=== PATIENT | male | born 1980 | race Caucasian/White ===

== ENCOUNTER 2022-04-01 19:13 | Inpatient (IN) | payer OTHER ==
[~2022-04-01] VITALS: Ht 175.3 cm; Wt 67.7 kg
[2022-04-01 19:51] LABS: COLLECTION METHOD CLEAN CATCH
[2022-04-01 19:54] LABS: BASO # 0.1 K/mm3 (0.0-0.2); BASO % 0.9 % (0.0-2.0); EOS % 0.2 % (0.0-4.0); GRAN # 2.1 K/mm3 (1.4-6.5); GRAN % 38.2 % (42.2-75.2); HEMATOCRIT 47.6 % (42.0-52.0); HEMOGLOBIN 17.5 g/dl (13.5-18.0); LYMPH # 2.7 K/mm3 (1.2-3.4); LYMPH % 49.1 % (20.0-51.0); MEAN CELL VOLUME 90 fl (80.0-100.0); MEAN CORPUSCULAR HEMOGLOBIN 33 pg (27-31); MEAN CORPUSCULAR HGB CONC 37 g/dl (33.0-37.0); MEAN PLATELET VOLUME 9.7 fl (7.4-10.4); MONO # 0.6 K/mm3 (0.1-0.6); MONO % 11.4 % (1.7-9.3); PLATELET COUNT 206 K/mm3 (130-400); RED BLOOD COUNT 5.27 M/mm3 (4.20-5.60); REDCELL DISTRIBUTION WIDTH-CV 13.8 % (11.5-14.5)
[2022-04-01 20:01] LABS: PH 8 (5-8); SQUAMOUS EPITHELIAL None Seen /hpf (0-10); URINE APPEARANCE Clear (CLEAR/HAZY); URINE BACTERIA None Seen /hpf (NONE SEEN); URINE BILIRUBIN Negative (NEGATIVE); URINE BLOOD Negative (NEGATIVE); URINE COLOR Yellow (YELLOW); URINE GLUCOSE Negative (NEGATIVE); URINE KETONE 1+ (NEGATIVE); URINE LEUKOCYTE ESTERASE Negative (NEGATIVE); URINE NITRATE Negative (NEGATIVE); URINE PROTEIN(semi-quant) Negative (NEGATIVE); URINE RBC None Seen /hpf (0-2); URINE UROBILINOGEN Negative (NEGATIVE)
[2022-04-01 20:12] LABS: ALBUMIN 4.6 gm/dL (3.5-5.0); BILIRUBIN,TOTAL 3.5 mg/dL (0.2-1.2); CALCIUM 9.1 mg/dL (8.4-10.2); CREATININE, serum 0.83 mg/dL (0.72-1.25); TOTAL PROTEIN 7.3 gm/dL (6.2-8.1)
[2022-04-01 20:15] LABS: POTASSIUM 2.8 mmol/L (3.5-4.5)
[2022-04-01 20:18] LABS: TRICYCLIC ANTIDEPRESS URINE NEGATIVE
[2022-04-02] VITALS (9 sets, daily range): BP systolic 127–146; BP diastolic 84–103; PULSE 93–112; TEMP 98.1–99.3
[2022-04-02 01:09] LABS: POTASSIUM 3.4 mmol/L (3.5-4.5)
--- NOTE | 2022-04-02 06:09 | NUR ---
PATIENT LIVES AT HOME ALONE DOESN'T HAVE MUCH OF A SUPPORT SYSTEM WHEN ASKED. VERY DROWSY BUT COOPERATIVE, NO SUICIDAL INDICATION NOTED. PATIENT DID STATE THAT HE DRINKS WHISKEY DAILY ABOUT HALF TO A GALLON DAILY. HISTORY NOTED HE HAS DETOXED IN THE PAST WITH SEIZURE AND HALLUCINATION FROM WITHDRAWL. PATIENT IS WANTING TO GET SOBER. NO PAIN NOTED AT THIS TIME CONTINUES ON CWAW SCORE OF 3 AT THIS TIME. PADDED BED FOR SEIZURE PRECAUTIONS. ALSO INFORMED CHARGE OF POSSIBLY MOVING PATIENT CLOSER TO NURSING STATION. PATIENT SLEEPING AT THIS TIME CALL LIGHT WITHIN REACH. ORIENTATED TO ROOM AND CALL LIGHT SYSTEM SKIN INTACT WILL COTNINUE TO MONITOR.
[2022-04-02 06:19] LABS: BASO % 0.9 % (0.0-2.0); EOS % 0.3 % (0.0-4.0); GRAN # 1.2 K/mm3 (1.4-6.5); GRAN % 36.6 % (42.2-75.2); HEMATOCRIT 38.8 % (42.0-52.0); HEMOGLOBIN 13.4 g/dl (13.5-18.0); LYMPH # 1.6 K/mm3 (1.2-3.4); LYMPH % 48.2 % (20.0-51.0); MEAN CELL VOLUME 94 fl (80.0-100.0); MEAN CORPUSCULAR HEMOGLOBIN 33 pg (27-31); MEAN CORPUSCULAR HGB CONC 35 g/dl (33.0-37.0); MEAN PLATELET VOLUME 9.8 fl (7.4-10.4); MONO # 0.5 K/mm3 (0.1-0.6); MONO % 13.7 % (1.7-9.3); PLATELET COUNT 130 K/mm3 (130-400); RED BLOOD COUNT 4.06 M/mm3 (4.20-5.60); REDCELL DISTRIBUTION WIDTH-CV 14.1 % (11.5-14.5)
[2022-04-02 06:38] LABS: CALCIUM 7.6 mg/dL (8.4-10.2); CREATININE, serum 0.66 mg/dL (0.72-1.25); POTASSIUM 3.5 mmol/L (3.5-4.5)
--- NOTE | 2022-04-02 08:00 | NUR ---
Assessment completed, alert/oriented, vital signs stable/ a little tachycardic, he denies pain or discomfort, he reports he is feeling anxious and has some mild tremors, reports decreased appetite but denies Nausea, CIWA score of 6 this morning and treating with Ativan per protocol, patient reports history of severe detox/ withrawl symptoms, he denies needs at this time, will continue to monitor closely
--- NOTE | 2022-04-02 13:56 | NUR ---
THEODORE met with the patient to discuss discharge plan. The patient lives alone in [place]. He reports independence with ADLs and does not have any DME. The patient states that he receives primary care and his medications from the [facility]. He is unsure what team he is on and states that he has not followed up with them in a few months. The patient does not have a DPOA-HC, but he was interested in completing a form while here. THEODORE provided. The patient designated his sister, Kaern Francisco (ph#[phone]). Karen lives in [place]. THEODORE and the patient's RN, Julio, witnessed the patient's signature. THEODORE provided the patient with the original and some copies. SW placed a copy in the patient's chart. The patient was admitted for alcohol abuse and detox. SW discussed inpatient/outpatient treatment. The patient states that he plans on returning home upon discharge, because he needs to do some things. He states that he would like to go to an inpatient alcohol facility, if the [place] pays for it. THEODORE contacted Kimberly, [place] social media editor, to inquire about whether the [place] pays for the inpatient alcohol treatment. Kimberly informed THEODORE that the patient is apart of the Blue Team and that his provider is Chacho Crowell. She states that SW will need to get in contact with their occupational therapy assistant, Vaishali Valerio (ph#[phone], ext. [phone]). Vaishali will be able to determine if the patient would qualify for inpatient alcohol treatment being covered and resources available. THEODORE attempted to contact Vaishali. THEODORE left her a voicemail. THEODORE provided the patient with a local alcohol resource list. *Discharge plan: home*
--- NOTE | 2022-04-02 23:32 | NUR ---
AAOX4 PATIENT CONITNUES ON CIWA PRECAUTIONS.PATIENT DOES HAVE INTERMITTEN TREMORS, DIAPHORESIS, AND HEADACHES. PATIENT THIS EVENING AROUND 1100 STATED THAT HE IS HALLUCINATING, HE STATED THAT HE IS SEEING PEOPLE IN HIS ROOM AND THERE JUST TALKING ALOT AND IT'S AGGREVATING PROVIDED PRN ATIVAN ORDERED. PATIENT DOES FEEL LIKE HE IS IN A SAFE ENVIRONMENT. WILL CONTINUE TO MONITOR NUTRITION ADEQUATE CALL LIGHT WITHIN REACH WILL COTINUE TO MONITOR FOR ANY CHAGNES.
[2022-04-03] VITALS (12 sets, daily range): BP systolic 126–148; BP diastolic 83–99; PULSE 82–114; TEMP 97.7–98.7
--- NOTE | 2022-04-03 05:07 | NUR ---
AROUND 0245 PATIENT INFORMED THIS NURSE THAT HE WAS HALLUCINATING. HE FELT HIS SYMTPOMS WHERE PROGRESSING. HE FELT A BURING SENSATION ALL OVER HIS BODY WITH BACK PAIN THAT FELT LIKE SOMETHING WAS GOING INTO HIS SKIN THEN CRAWLING AROUND. PATIENT HAS HAD INSOMNIA THROUGHOUT SHIFT AND UNABLE TO SLEEP. I COULD VISUALLY SEE HIS TREMORS IN ALL EXTREMITIES PATIET FELT HE WASN'T ABLET O SETTLE DOWN AT ALL. PATIENT ALSO WAS STATING THAT HIS BED HAD AN ODOR AND WANTED HIS MATTRESSED FLIPPED. NURSE AND ELECTROENCEPHALOGRAPHIC TECHNOLOGIST ASSIST PATIENT CLEANED DOWN BED AND ALSO FLIPPED MATTRESS ON BACK SIDE. PATIENT SEEM TO CALM DOWN AND STOPPED PACING IN ROOM PROVIDED PRN ATIVAN. SOMEWHATE EFFECITVE PROVIDED ANOTHER DOSE AROUND 0400 DUE TO PATIENT STATING THAT HE CONTINUED TO HAVE HALLUCINATION, PAIN, HEADACHE, SLIGHTLY DIAPHORECTIC, AND FELT HIS SKIN WAS STILL ON FIRE. AT THIS TIME 0512 PATIENT IS LYING IN BED AWAKE WILL CONTINUE TO MONITOR.
[2022-04-03 06:07] LABS: BASO % 0.9 % (0.0-2.0); EOS % 0.9 % (0.0-4.0); GRAN # 1.8 K/mm3 (1.4-6.5); GRAN % 56.7 % (42.2-75.2); HEMATOCRIT 39.6 % (42.0-52.0); HEMOGLOBIN 13.9 g/dl (13.5-18.0); LYMPH # 0.9 K/mm3 (1.2-3.4); LYMPH % 29.6 % (20.0-51.0); MEAN CELL VOLUME 92 fl (80.0-100.0); MEAN CORPUSCULAR HEMOGLOBIN 32 pg (27-31); MEAN CORPUSCULAR HGB CONC 35 g/dl (33.0-37.0); MEAN PLATELET VOLUME 10.1 fl (7.4-10.4); MONO # 0.4 K/mm3 (0.1-0.6); MONO % 11.9 % (1.7-9.3); PLATELET COUNT 132 K/mm3 (130-400); RED BLOOD COUNT 4.29 M/mm3 (4.20-5.60); REDCELL DISTRIBUTION WIDTH-CV 13.8 % (11.5-14.5)
[2022-04-03 06:13] LABS: ALBUMIN 3.9 gm/dL (3.5-5.0); BILIRUBIN,TOTAL 4.1 mg/dL (0.2-1.2); CREATININE, serum 0.64 mg/dL (0.72-1.25); MAGNESIUM 1.6 mg/dL (1.6-2.6); POTASSIUM 3.3 mmol/L (3.5-4.5); TOTAL PROTEIN 6.1 gm/dL (6.2-8.1)
--- NOTE | 2022-04-03 10:34 | NUR ---
Assessment completed, alert/oriented, vital signs stable, CIWA scores are fluctuating, we are starting on Valium taper and using Ativan PRN per protocol, he is tolerating PO intake without N/V, appetite less than heart RRR/ tachy at times, lungs CTA/ no resp.difficulty noted, yesterday denies pain or discomfort, no seizure activity, discussed plan of care with hospitalist team and patient, will continu to monitor
--- NOTE | 2022-04-03 16:18 | NUR ---
Chayo, from [facility], contacted THEODORE. She states that the patient has two options if he is looking at inpatient alcohol treatment. He can either go through [facility], which is care outside of the [facility]. He would have to complete a Request For Service Form, which would also need to be filled out by the hospitalist. The completed form would need to be faxed to either [phone]. If the patient is wanting to stay and look at treatment within the [facility], documentation would need to be faxed to the VA. The VA and their mental health team can assist with finding a program or treatment for the patient. . If we have any questions, we can contact the Blue Team 6 RN at [phone]. The fax number for the pharmacy, if the patient will be prescribed any new meds is [phone]. The patient is actively detoxing today and was moved to room 355. THEODORE to follow up with the patient about the treatment options.
--- NOTE | 2022-04-03 20:00 | NUR ---
Pt. sitting up in bed. Pt. is A&OX3, assessment complete. INT to lt. ac patent. Pt. scoring 9's on detox scale. Giving 2 mg of ativan. Pt. seems very paranoid and anxious at this time. Pt. frequently asks for more ativan. Will continue to monitor detox scores. Pt. denies further needs, call light within reach. Bed alarm on.
[2022-04-04] VITALS (12 sets, daily range): BP systolic 115–151; BP diastolic 74–95; PULSE 70–109; TEMP 97.6–98.9
[2022-04-04 06:48] LABS: BASO % 1.4 % (0.0-2.0); EOS # 0.1 K/mm3 (0.0-0.7); EOS % 1.8 % (0.0-4.0); GRAN # 1.8 K/mm3 (1.4-6.5); GRAN % 65.2 % (42.2-75.2); HEMATOCRIT 39.2 % (42.0-52.0); LYMPH # 0.6 K/mm3 (1.2-3.4); LYMPH % 22.7 % (20.0-51.0); MEAN CELL VOLUME 93 fl (80.0-100.0); MEAN CORPUSCULAR HEMOGLOBIN 33 pg (27-31); MEAN CORPUSCULAR HGB CONC 36 g/dl (33.0-37.0); MEAN PLATELET VOLUME 10.9 fl (7.4-10.4); MONO # 0.2 K/mm3 (0.1-0.6); MONO % 8.5 % (1.7-9.3); PLATELET COUNT 118 K/mm3 (130-400); RED BLOOD COUNT 4.23 M/mm3 (4.20-5.60); REDCELL DISTRIBUTION WIDTH-CV 13.6 % (11.5-14.5)
[2022-04-04 07:08] LABS: ALBUMIN 3.7 gm/dL (3.5-5.0); BILIRUBIN,TOTAL 2.3 mg/dL (0.2-1.2); CALCIUM 8.9 mg/dL (8.4-10.2); CREATININE, serum 0.62 mg/dL (0.72-1.25); POTASSIUM 3.1 mmol/L (3.5-4.5); TOTAL PROTEIN 5.9 gm/dL (6.2-8.1)
--- NOTE | 2022-04-04 09:36 | NUR ---
THEODORE met with the patient to update about the 2 options for inpatient alcohol treatment from the [facility]. The patient states that he really is not sure and to do whatever that be expedited quickly. THEODORE informed him that SW could send the patient's records to the VA, for them to help find inpatient treatment that is contracted with the VA. THEODORE informed him that the VA may not have placement by the time he discharges. The patient verbalized understanding. THEODORE faxed the patient's records to the [facility] Blue Team 6.
--- NOTE | 2022-04-04 10:17 | NUR ---
PATIENT ALERT AND ORIENTED THIS MORNING, CIWA SCORE 2, COMPLAINTS OF HEADACHE, AND CHRONIC BACK PAIN. RESTING INTERMITTENTLY IN BED. SOME PACING IN HALLWAY AND IN ROOM BEFORE MORNING MEDS. REPLACEMENT POTASSIUM AND MAG THIS MORNING. CLOSE MONITORING OF VITALS AND CIWA PROTOCOLS. PATIENT WITH FLAT AFFECT, WITH DRAWN, AND DISTANT. WILL CONTINUE TO MONITOR CLOSELY.
--- NOTE | 2022-04-04 15:18 | NUR ---
PATIENT "ROLLED OUT OF BED' CAUSING IV TO FALL OUT. NEW IV 20G TO RIGHT UPPER ARM PLACED. PATIENT SHOWERED INDEPENDENTLY.
--- NOTE | 2022-04-04 17:12 | NUR ---
PATIENT ATTITUDE WAXES AND WANES. CIWA SCORES UP AND DOWN FROM 2 TO 6 OVER THE DAY. 2 DOSES OF ATIVAN GIVEN PER SCORING CRITERIA. PATIENT IV REMOVED BY 'PATIENT ROLLING OUT OF BED', REPLACED IN ONEIL. ONE DOSE OF IV MAG GIVEN, AGREEABLE TO IV FLUIDS, AND ALL ORAL MEDICATIONS. AT ONE POINT TECH REPORTED ELEVATION IN BLOOD PRESSURE, PATIENT AGITATED AND WANTED "1HR OF PRIVACY", AND WAS CURSING AT STAFF. AUTHOR WALKED IN TO GIVEN PATIENT 0.5MG OF PRESCRIBED CIWA ATIVAN TO FIND PATIENT WITH PANTS PULLED DOWN, LOTION ON BEDSIDE TABLE, AND PATIENT ATTEMPTING TO COVER HIMSELF WITH BLANKET WHEN WALKED IN ON. RECOMMEND TWO STAFF AT BEDSIDE FOR CARE OR DOOR OPEN WHEN STAFF BEDSIDE. NO OTHER SIGNIFICANT EVENTS THIS SHIFT.
[2022-04-05] VITALS (12 sets, daily range): BP systolic 112–143; BP diastolic 76–98; PULSE 71–101; TEMP 97–98.5
[2022-04-05 06:16] LABS: BASO % 1.1 % (0.0-2.0); EOS # 0.1 K/mm3 (0.0-0.7); EOS % 2.6 % (0.0-4.0); GRAN # 1.6 K/mm3 (1.4-6.5); GRAN % 56.9 % (42.2-75.2); HEMATOCRIT 37.8 % (42.0-52.0); LYMPH # 0.9 K/mm3 (1.2-3.4); MEAN CELL VOLUME 95 fl (80.0-100.0); MEAN CORPUSCULAR HEMOGLOBIN 33 pg (27-31); MEAN CORPUSCULAR HGB CONC 34 g/dl (33.0-37.0); MEAN PLATELET VOLUME 10.9 fl (7.4-10.4); MONO # 0.2 K/mm3 (0.1-0.6); PLATELET COUNT 124 K/mm3 (130-400); RED BLOOD COUNT 3.97 M/mm3 (4.20-5.60)
[2022-04-05 06:20] LABS: PROTHROMBIN TIME 11.6 SECONDS (9.7-12.8)
--- NOTE | 2022-04-05 06:23 | NUR ---
ASSESSMENT COMPLETE FOR THIS SHIFT. PT RESTING IN BED NAPPING. PT DENIED PAIN, PALPITATIONS, SOB, N,V,D OR DIZZINESS. PT DID COMPLAIN OF FEELING LIKE HIS SKIN, FACE AND INTERNAL BODY WAS ON FIRE. PT ALSO MADE WEIRD COMMENTS, FOR EXAMPLE,"IS THIS THE BASEMENT OF THE HOSPITAL?" PT HAD ONE EPISODE OF INAPPROPRIATE TOUCH. PT STARTED RUBBING ON MY THIGH AND ASKING ME TO COME CLOSER. HOWEVER, WHEN I TOLD HIM THAT WAS INAPPROPRIATE BEHAVIOR, PT QUICKLY STOPPED. PT SCORED A COUPLE OF 6'S AND A 7 ON CIWA TONIGHT. PT GIVEN ATIVAN PER CIWA SCALE. PT EXPRESSED NO OTHER NEEDS AT THIS TIME. CALL LIGHT WITHIN REACH.
[2022-04-05 06:25] LABS: ALBUMIN 3.3 gm/dL (3.5-5.0); BILIRUBIN,TOTAL 1.9 mg/dL (0.2-1.2); CALCIUM 8.4 mg/dL (8.4-10.2); CREATININE, serum 0.72 mg/dL (0.72-1.25); MAGNESIUM 1.9 mg/dL (1.6-2.6); POTASSIUM 3.5 mmol/L (3.5-4.5); TOTAL PROTEIN 5.5 gm/dL (6.2-8.1)
--- NOTE | 2022-04-05 06:45 | NUR ---
Bedside report received, assumed care for dayshift.
--- NOTE | 2022-04-05 08:00 | NUR ---
Assessment complete. A&Ox3. Denies pain/nausea/shortness of breath. VS stable. Noted to have an intermittent tremor. Remains calm at this time. Plan of care discussed for this shift to include meds/vitals/calling for questions/concerns. Verbalizes understanding. Call light in reach. Will monitor.
--- NOTE | 2022-04-05 12:30 | NUR ---
Called to desk with c/o chest pain. States it started in his left side and radiated up to chest and then to back. Vitals stable. Dr Chaudhry notified and new orders received and initiated. EKG complete. Ativan 1mg given IV push per order. Currently resting eyes closed.
--- NOTE | 2022-04-05 14:00 | NUR ---
Dr Houston at bedside.
--- NOTE | 2022-04-05 18:28 | NUR ---
Resting in bed eating dinner. Denies pain/nausea/shortness of breath. VS remain stable. Did receive ativan x2 for detox protocol. Fluids continue to infuse to right upper arm IV. Denies current needs. Call light in reach. Will monitor.
[2022-04-06] VITALS (12 sets, daily range): BP systolic 117–151; BP diastolic 71–95; PULSE 69–91; TEMP 97.7–98.7
--- NOTE | 2022-04-06 06:25 | NUR ---
ASSESSMENT COMPLETE FOR THIS SHIFT. PT RESTING IN BED WITH THE COVERS OVER HIS HEAD. PT DENIED PAIN, PALPITATIONS, N,V,D, SOB OR DIZZINESS. PT SCORED 2'S AND 3' ON CIWA MOST OF THE NIGHT, THEN SCORED A COUPLE OF 6'S A COUPLE OF HOURS BEFORE SHIFT CHANGE. PT GIVEN 1mg OF ATIVAN FOR EACH 6 SCORE. PT STATED THE ATIVAN ONLY HELPS FOR A LITTLE WHILE. PT EXPRESSED NO OTHER NEEDS AT THIS TIME. CALL LIGHT WITHIN REACH.
--- NOTE | 2022-04-06 06:45 | NUR ---
Report received, assumed care for day shift.
--- NOTE | 2022-04-06 08:20 | NUR ---
Assessment complete. A&Ox3. Denies pain/nausea/shortness of breath. VS stable.
[2022-04-06 08:49] LABS: ALBUMIN 3.3 gm/dL (3.5-5.0); BILIRUBIN,TOTAL 1.3 mg/dL (0.2-1.2); CALCIUM 8.4 mg/dL (8.4-10.2); CREATININE, serum 0.71 mg/dL (0.72-1.25); POTASSIUM 4.1 mmol/L (3.5-4.5); TOTAL PROTEIN 5.5 gm/dL (6.2-8.1)
--- NOTE | 2022-04-06 17:13 | NUR ---
Patient had an uneventful day. Did receive ativan x2 for scoring 5-7 on protocol. INTd today. Voiding well/tolerating diet. VS stable. Denies current needs. Call light in reach. Will monitor.
[2022-04-07] VITALS (8 sets, daily range): BP systolic 116–144; BP diastolic 67–95; PULSE 63–97; TEMP 98.1–99.2
[2022-04-07 08:30] LABS: BASO % 0.6 % (0.0-2.0); EOS # 0.1 K/mm3 (0.0-0.7); EOS % 1.7 % (0.0-4.0); GRAN # 2.7 K/mm3 (1.4-6.5); HEMATOCRIT 42.8 % (42.0-52.0); HEMOGLOBIN 14.7 g/dl (13.5-18.0); LYMPH # 1.3 K/mm3 (1.2-3.4); LYMPH % 27.9 % (20.0-51.0); MEAN CELL VOLUME 98 fl (80.0-100.0); MEAN CORPUSCULAR HEMOGLOBIN 34 pg (27-31); MEAN CORPUSCULAR HGB CONC 34 g/dl (33.0-37.0); MEAN PLATELET VOLUME 10.5 fl (7.4-10.4); MONO # 0.6 K/mm3 (0.1-0.6); MONO % 11.6 % (1.7-9.3); PLATELET COUNT 182 K/mm3 (130-400); RED BLOOD COUNT 4.35 M/mm3 (4.20-5.60); REDCELL DISTRIBUTION WIDTH-CV 14.8 % (11.5-14.5)
--- NOTE | 2022-04-07 08:30 | NUR ---
PT LAYING SUPINE IN BED ON ROOM AIR PLAYING ON PHONE. PT STATES HE IS "FEELING GOOD." NO TREMORS ARE NOTED AND PT DENIES ANY HALLUCATIONS. THERAPY IS AT BEDSIDE TO WORK WITH PT. PT AND THERAPY UP TO WALK IN HALLWAY. PT STATES NO NEEDS AT THIS TIME.
[2022-04-07 08:48] LABS: ALBUMIN 3.7 gm/dL (3.5-5.0); BILIRUBIN,TOTAL 1.2 mg/dL (0.2-1.2); CALCIUM 9.2 mg/dL (8.4-10.2); CREATININE, serum 0.82 mg/dL (0.72-1.25); POTASSIUM 3.9 mmol/L (3.5-4.5); TOTAL PROTEIN 6.2 gm/dL (6.2-8.1)
--- NOTE | 2022-04-07 14:13 | NUR ---
A psych consult was ordered and the psychiatrist met with the patient this weekend. The patient is now declining alcohol treatment. The clinical team is thinking possible discharge tomorrow. THEODORE met with the patient to follow up an review discharge plan. The patient states that he would still be interested in inpatient treatment through the [place]. THEODORE informed him that this SW has notified and faxed his information to his team at the [place]. We have not heard anything back yet and that he will continue to have to stay in touch with them about treatment options. The patient verbalized understanding. The patient then inquired about homeless shelters. The patient states that he may have lost his apartment, but is not sure. He states he is unsure if he paid his rent. THEODORE encouraged the patient to contact his landlord today to find out disposition and to inform the landlord of his hospitalization. The patient verbalized understanding. THEODORE provided the patient with [facility]'s Resource Guide, a list of homeless shelters with their contact information, and the [facility] Team 6 phone number. THEODORE attempted to contact the [facility] Team 6 janitor cleaner, Juan, to notify of possible discharge tomorrow. THEODORE left her a voicemail.
--- NOTE | 2022-04-07 16:36 | NUR ---
PT STATES THAT HE DOES NOT WANT HEART TELE ON ANYMORE. CALLED RIGOBERTO ANNA AND INFORMED HER PT WAS REFUSING. RIGOBERTO STATES THAT SHE WILL DC IT.
--- NOTE | 2022-04-07 18:24 | NUR ---
PT LAYING SUPINE IN BED ON ROOM AIR PLAYING ON PHONE. PT STATES NO PAIN OR NEEDS AT THIS TIME. PT REQUEST DINNER TRAY TO BE LEFT IN ROOM. NO TREMORS ARE NOTED. CALL LIGHT IS WITHIN REACH.
[2022-04-08 00:29] VITALS: BP 127/85; PULSE 77; TEMP 98.7
[2022-04-08 04:31] VITALS: BP 146/77; PULSE 79; TEMP 98.6
--- NOTE | 2022-04-08 06:30 | NUR ---
PT IS AWAKE AND ACTIVE IN THE ROOM. DENIES ANY PAIN. CIWA SCORE IS ZERO AT THIS TIME.
[2022-04-08 08:07] VITALS: BP 144/87; PULSE 97; TEMP 98.3
[2022-04-08 08:37] LABS: BASO # 0.1 K/mm3 (0.0-0.2); BASO % 0.8 % (0.0-2.0); EOS # 0.1 K/mm3 (0.0-0.7); EOS % 1.4 % (0.0-4.0); GRAN # 3.7 K/mm3 (1.4-6.5); GRAN % 57.7 % (42.2-75.2); HEMATOCRIT 45.8 % (42.0-52.0); HEMOGLOBIN 15.8 g/dl (13.5-18.0); LYMPH # 1.7 K/mm3 (1.2-3.4); LYMPH % 27.2 % (20.0-51.0); MEAN CELL VOLUME 96 fl (80.0-100.0); MEAN CORPUSCULAR HEMOGLOBIN 33 pg (27-31); MEAN CORPUSCULAR HGB CONC 35 g/dl (33.0-37.0); MEAN PLATELET VOLUME 10.5 fl (7.4-10.4); MONO # 0.8 K/mm3 (0.1-0.6); MONO % 11.8 % (1.7-9.3); PLATELET COUNT 227 K/mm3 (130-400); RED BLOOD COUNT 4.76 M/mm3 (4.20-5.60); REDCELL DISTRIBUTION WIDTH-CV 15.1 % (11.5-14.5)
[2022-04-08 08:56] LABS: BILIRUBIN,TOTAL 1.1 mg/dL (0.2-1.2); CALCIUM 9.5 mg/dL (8.4-10.2); CREATININE, serum 0.83 mg/dL (0.72-1.25); POTASSIUM 3.9 mmol/L (3.5-4.5); TOTAL PROTEIN 6.8 gm/dL (6.2-8.1)
[2022-04-08] MEDS ORDERED: THIAMINE 1100 MG/TAB PO (11:11)
[2022-04-08] MEDS ORDERED: FOLIC ACID 11 MG/TA1 PO (11:11)
[2022-04-08] MEDS ORDERED: DUO-KAPS1 CAP PO (11:11)
--- NOTE | 2022-04-08 13:28 | NUR ---
THEODORE received a voicemail from Chayo, district manager primary care sales, with the [facility] Blue Team. Chayo reports that they reached out to the patient about inpatient alcohol treatment, but the patient is stating that his priority right now is focusing on bills and he wants to hold off on inpatient treatment at this time. Chayo states that they provided the patient with the contact information to their mental health team. THEODORE then received a phone call from Kristina Church, the patient's case sealer, through the patient's community based care through the [place]. Kristina states that she checks in on the patient monthly and just talked to him. She states that the patient is homeless, but has a special voucher that has him housed in [address]. She states that she checked with patient's housing and the patient is able to return back to his apartment and the property is willing to work with the patient. Kristina plans to keep on working with the patient on placement. She states that he goes back and fourth about wanting inpatient alcohol treatment. The patient is to discharge back home today, 04/08. THEODORE provided the patient's RN with a taxi voucher. No additional needs at this time.
--- NOTE | 2022-04-08 14:15 | NUR ---
DURING DISCHARGE EDUCATION, THE PATIENT MADE A STATEMENT "I JUST WANT TO GO HOME AND KILL MYSELF." WHEN ASKED IF HE HAD A PLAN, HE STATES "I'M MESSED UP IN THE HEAD, I'M ALWAYS SUICIDAL." THIS RN NOTIFIED SHOSHANA FRANKLIN WHO PLACED THE PATIENT UNDER A LEVEL I, SUICIDE WATCH.
--- NOTE | 2022-04-08 15:22 | NUR ---
Kristina, the patient's landcare officer, contacted this SW back. She states that she feels like the patient would benefit from transferring to the [facility] to be screened by their Mental Health team for acute psych to help get him back on his psych medications. Kristina states that this is up to the patient, but that we could get this coordinated and transportation set up through the [place]. THEODORE would just need to contact Mass[employer] at [phone], ext. [phone] and information faxed to them. THEODORE met with the patient to discuss this option and how it would help him. The patient's RN was present. The patient states that this will not work for him right now and he would want to reschedule this. He states that he just wants to get home and take care of some things. The patient then went on to say that inpatient psych/alcohol treatment will not help him and that he just needs some good meds so that he can sleep for a week. The patient states that he just wants to kill himself. THEODORE asked if the patient is having thoughts of suicide or harming himself. The patient states that he is just done. THEODORE notified the PA. Discharge today has been canceled. The clinical team would like for [facility] to screen the patient. THEODORE contacted and faxed the patient's records to [facility]. Awaiting information from [facility] for the Zoom meeting to screen the patient. THEODORE updated the patient's RN.
[2022-04-08 16:07] VITALS: BP 136/96; PULSE 79; TEMP 98
--- NOTE | 2022-04-08 18:00 | NUR ---
[facility] SCREENING DONE, STATES THAT THE PATIENT IS UNCLEAR IN HIS STATEMENTS AND DOES NOT FEEL THAT THE PATIENT IS SAFE TO GO HOME THEREFORE NEEDS TO BE HELD INVOLUNTARY. THIS RN ASKED FOR THE PAPERWORK FROM [facility] TO BE FAXED.
--- NOTE | 2022-04-08 19:21 | NUR ---
PT HAD EVENTFUL DAY. DURING DISCHARGE EDUCATION THE PATIENT EXPRESSED SUICIDAL IDEATION. WAS CONTACTED. THE PROVIDER PUT IN AN ORDER FOR PAWNEE SCREEN. THE PATIENT WAS THEN PLACED ON AN INVOLUNTARY HOLD PENDING INVOLUNTARY INPATIENT PLACEMENT. THE PATIENT WAS VERY CALM. ATIVAN AND HALDOL WERE GIVEN. THE PATIENT HAS BEEN LAYING IN BED, DENIES ANY NEEDS. REPORT WAS GIVEN TO ADRI MENDOZA.
[2022-04-08 20:49] VITALS: BP 136/91; PULSE 117; TEMP 98.6
[2022-04-08 22:23] VITALS: BP 109/75; PULSE 104; TEMP 98.6
[2022-04-09] VITALS (34 sets, daily range): BP systolic 98–154; BP diastolic 63–99; PULSE 70–118; TEMP 97.6–98.7
--- NOTE | 2022-04-09 06:30 | NUR ---
PT IS SLEEPING AT THIS TIME.
--- NOTE | 2022-04-09 07:30 | NUR ---
OPENED PATIENT DOOR, PATIENT IS LAYING IN BED.
--- NOTE | 2022-04-09 08:20 | NUR ---
PT IS AWAKE AND SITTING UP EATING BREAKFAST. NO OTHER CONCERNS. PATIENT IS IN A STABLE MOOD THIS MORNING. DENIES ANY PAIN OR DISCOMFORT. THE PATIENT REMAINS UNDER SPECIAL SUPERVISION FOR INVOLUNTARY PSYCH HOLD DUE TO THREAT TO HARM HIMSELF.
[2022-04-09 08:21] LABS: BASO % 0.9 % (0.0-2.0); EOS # 0.1 K/mm3 (0.0-0.7); EOS % 2.1 % (0.0-4.0); GRAN # 2.2 K/mm3 (1.4-6.5); GRAN % 51.5 % (42.2-75.2); HEMATOCRIT 40.9 % (42.0-52.0); LYMPH # 1.2 K/mm3 (1.2-3.4); LYMPH % 27.7 % (20.0-51.0); MEAN CELL VOLUME 100 fl (80.0-100.0); MEAN CORPUSCULAR HGB CONC 34 g/dl (33.0-37.0); MEAN PLATELET VOLUME 10.5 fl (7.4-10.4); MONO # 0.7 K/mm3 (0.1-0.6); MONO % 16.4 % (1.7-9.3); PLATELET COUNT 235 K/mm3 (130-400); RED BLOOD COUNT 4.09 M/mm3 (4.20-5.60); REDCELL DISTRIBUTION WIDTH-CV 15.6 % (11.5-14.5)
[2022-04-09 08:24] LABS: HEMOGLOBIN 13.7 g/dl (13.5-18.0); MEAN CORPUSCULAR HEMOGLOBIN 33 pg (27-31)
--- NOTE | 2022-04-09 08:35 | NUR ---
THE PATIENT IS UP AND WALKING AROUND THE ROOM. CONTACTED PROVIDER; PT UPGRADED TO A LEVEL III WATCH AT THIS TIME. ROOM IS SWEPT, INCREASED ZIP TIES IN THE ROOM AND THE PATIENT'S BELONGINGS ARE REMOVED AT THIS TIME. ISA FOSTER IS WITH THE PATIENT A SITTER.
[2022-04-09 09:04] LABS: ALBUMIN 3.4 gm/dL (3.5-5.0); BILIRUBIN,TOTAL 0.8 mg/dL (0.2-1.2); CALCIUM 8.8 mg/dL (8.4-10.2); CREATININE, serum 0.83 mg/dL (0.72-1.25); POTASSIUM 4.2 mmol/L (3.5-4.5); TOTAL PROTEIN 5.6 gm/dL (6.2-8.1)
--- NOTE | 2022-04-09 12:29 | NUR ---
Call placed to [facility]. Patient is #18 on the list
--- NOTE | 2022-04-09 14:50 | NUR ---
[facility] screened the patient last night and recommend involuntary placement. The patient was put on suicide precautions. The psychiatrist plans to revisit the patient today. Cyber Incident Responder checked with [facility] and the patient is #18 on their list.
--- NOTE | 2022-04-09 18:55 | NUR ---
THE PATIENT HAD AN UNEVENTFUL DAY. SITTER WAS WITH PATIENT ALL DAY. DENIES ANY PAIN OR DISCOMFORT. DOES STATE HE IS BORED AND HAS BEEN LOOKING UP PICTURES OF THE [facility] ON HIS PERSONAL PHONE. NO OTHER CONCERNS. REPORT GIVEN TO POULTRY FARMER MEAT RN.
[2022-04-10] VITALS (22 sets, daily range): BP systolic 92–139; BP diastolic 52–91; PULSE 76–111; TEMP 97.5–98.7
[2022-04-10 06:28] LABS: HEMATOCRIT 41.1 % (42.0-52.0); HEMOGLOBIN 13.5 g/dl (13.5-18.0); MEAN CELL VOLUME 102 fl (80.0-100.0); MEAN CORPUSCULAR HEMOGLOBIN 33 pg (27-31); MEAN CORPUSCULAR HGB CONC 33 g/dl (33.0-37.0); MEAN PLATELET VOLUME 10.6 fl (7.4-10.4); PLATELET COUNT 244 K/mm3 (130-400); RED BLOOD COUNT 4.05 M/mm3 (4.20-5.60); REDCELL DISTRIBUTION WIDTH-CV 15.6 % (11.5-14.5)
[2022-04-10 06:54] LABS: ALBUMIN 3.3 gm/dL (3.5-5.0); BILIRUBIN,TOTAL 0.7 mg/dL (0.2-1.2); CALCIUM 8.8 mg/dL (8.4-10.2); CREATININE, serum 0.78 mg/dL (0.72-1.25); POTASSIUM 4.4 mmol/L (3.5-4.5); TOTAL PROTEIN 5.6 gm/dL (6.2-8.1)
[2022-04-10 06:57] LABS: PLATELET ESTIMATE NORMAL (NORMAL)
--- NOTE | 2022-04-10 07:00 | NUR ---
PT SLEEPING IN BED, SITTER AT DOOR. NO CONCERNS.
[2022-04-10 07:45] LABS: BAND 1 % (0-10); EOSINOPHIL 2 % (0-4); LYMPHOCYTE 38 % (20.0-51.0); NEUTROPHILS 48 % (42.0-75.2)
--- NOTE | 2022-04-10 09:12 | NUR ---
THEODORE contacted Lorenzo at [facility] to inquire where the patient is at on the waiting list at [facility]. Lorenzo states that the patient is still currently #18 on the list. She states that [facility] will contact the hospital when they are ready to admit him. She states that we can also contact [facility] to find out where he is at on the list. #[phone].
--- NOTE | 2022-04-10 10:09 | NUR ---
[facility] Court contacted the cracking unit operator and faxed over court documentation. The patient is scheduled to have a meeting with his bone cooking operator at 14[address] hearing is at 1500, via Zoom. SW met with the patient to update and served him the documentation. SW placed a copy in the patient's chart. SW to assist with getting the Zoom meetings set up.
--- NOTE | 2022-04-10 10:58 | NUR ---
PT AMBULATED AROUND THE MEDICAL UNIT WITH PT. DENIES ANY ISSUES. DIRECTOR OF STUDENT LIFE WILL HAVE A ZOOM MEETING WITH HIM AT 1445, THEN HE WILL HAVE A ZOOM MEETING WITH A STITCH MARKER REGARDING HIS INVOLUNTARY STATUS AT 1500.
--- NOTE | 2022-04-10 15:43 | NUR ---
THEODORE connected the patient to his Zoom meetings with his landscape architecture teacher and the lapel padder blindstitch. He is having the meeting with the lapel padder blindstitch now. Will await the judges decision.
--- NOTE | 2022-04-10 19:53 | NUR ---
PT HAD UNEVENTFUL DAY. NO CONCERNS.
--- NOTE | 2022-04-10 19:57 | NUR ---
1954 CONTINUOUS FLUSHING OF TOILET. THIS RN ASKED IF EVERYTHING WAS OKAY. PT STATED "YEAH I WAS TRYING TO FLUSH MY MOMS KEYS DOWN THE TOILET. THE ELECTRIC FOB AND EVERYTHING." THIS RN ASKED WHY AND PT STATED "ONE TO PISS HER OFF AND TWO TO CLOG THE TOILET." THIS RN ASKED WHY HE WAS TRYING TO CLOG THE TOILET. PT. STATED HE WAS JOKING.
--- NOTE | 2022-04-10 23:49 | NUR ---
2300 THIS RN WENT TO LUNCH. PCT IRENE TAKING OVER CARE AT THIS TIME.
[2022-04-11] VITALS (14 sets, daily range): BP systolic 123–136; BP diastolic 68–90; PULSE 68–94; TEMP 98.1–98.6
--- NOTE | 2022-04-11 06:25 | NUR ---
ASSESSMENT COMPLETE FOR THIS SHIFT. PT RESTING IN BED WATCHING VIDEOS ON HIS PHONE. PT DENIED PAIN, PALPITATIONS, SOB, N,V,D OR DIZZINESS. PT HAD A SITTER THE WHOLE SHIFT. PT HAS A MOSTLY UNEVENTFUL NIGHT. PT EXPRESSED NO OTHER NEEDS AT THIS TIME. CALL LIGHT WITHIN REACH.
--- NOTE | 2022-04-11 07:00 | NUR ---
Pt laying in bed watching shows on his phone. Pt is AxOx4 and cooperative. Will continue constant observation.
--- NOTE | 2022-04-11 11:20 | NUR ---
THEODORE contacted Meg at the [facility] to follow up on the court's decision. The court ruled to proceed with involuntary placement. Meg states that she is working on getting the court order. She states that the [facility] is [facility], but would want the court order first. The patient is currently still #18 on the waiting list at [facility].
--- NOTE | 2022-04-11 15:08 | NUR ---
Meg, at , contacted THEODORE. Meg states the she just heard that the juvenile court judge ordered outpatient treatment at court for the patient and the juvenile court judge instructed the patient to get in contact with the [facility]. Meg states that she has not received the signed court orders yet from the juvenile court judge. Meg states that they do not do a safety plan with the patient in these cases, where the juvenile court judge makes a ruling. THEODORE contacted [facility] to follow up about the signed court order. The medical receptionist biller reports that Prop And Scenery Maker Mario is in appeals right now, but once he is out, she is going to get him to sign the order. She reports that she will then fax the order to the medical unit. THEODORE confirmed the medical unit fax number with the medical receptionist biller. THEODORE updated the patient's PA and the RN. Once the court document is received, the patient will be able to discharge. THEODORE placed a taxi voucher on the patient's chart for the patient to get home and updated the RN of this.
--- NOTE | 2022-04-11 15:33 | NUR ---
THEODORE received the court order by Judge Martin from the [facility] Court, via fax. SW notified the clinical team and placed the order in the patient's chart. THEODORE contacted and updated the patient's case packer, Kristina, through the [place]. Kristina states that she plans to follow up with the patient on Thursday and will update the patient's provider. Kristina, District Plant Superintendent, [place] Community Based Program ph#[phone].
[2022-04-11] MEDS ORDERED: ZYPREXA 5MG5 MG PO (15:35)
--- NOTE | 2022-04-11 16:21 | NUR ---
THEODORE also updated ADRI Tomtest rider, with the patient's [facility] Blue [facility]. Vaishali asked for the patient's discharge orders and the court order. THEODORE faxed the patient's discharge orders/summary/and the court order to Vaishali with the [place] Blue Team.
== END 2022-04-11 17:00 | disposition home or self-care (01) | DRG 897 ==
LOC: COL.ER 19:13 → EDBD 19:13 → MEDICAL 04-02 02:25
PROVIDERS: Physician Assistant; Student in an Organized Health Care Education/Training Program; ADMIT Internal Medicine
DX: F10.129 Alcohol abuse with intoxication, unspecified (principal); E44.0 Moderate protein-calorie malnutrition; R45.851 Suicidal ideations; K70.10 Alcoholic hepatitis without ascites; E87.6 Hypokalemia; K76.0 Fatty (change of) liver, not elsewhere classified; Z66 Do not resuscitate; F20.9 Schizophrenia, unspecified; E83.42 Hypomagnesemia; Y90.8 Blood alcohol level of 240 mg/100 ml or more
CPT/HCPCS: 99223-AI; 99232-AI; 99233-AI; 99239; C9113; J1630; J1650; J1790; J2060; J3411; J3475; J3480; J7030; J7120

== ENCOUNTER 2022-04-18 03:09 | Emergency (ER) | payer OTHER ==
[~2022-04-18] VITALS: Ht 172.7 cm; Wt 81.8 kg
[~2022-04-18 03:09] MED LIST: DUO-KAPS1 CAP PO; FOLIC ACID 11 MG/TA1 PO; THIAMINE 1100 MG/TAB PO; ZYPREXA 5MG5 MG PO
[2022-04-18 03:11] VITALS: TEMP 97.2
[2022-04-18 04:27] LABS: BASO # 0.1 K/mm3 (0.0-0.2); EOS % 0.2 % (0.0-4.0); GRAN % 50.1 % (42.2-75.2); HEMATOCRIT 46.7 % (42.0-52.0); HEMOGLOBIN 16.2 g/dl (13.5-18.0); LYMPH # 2.4 K/mm3 (1.2-3.4); LYMPH % 40.1 % (20.0-51.0); MEAN CELL VOLUME 96 fl (80.0-100.0); MEAN CORPUSCULAR HEMOGLOBIN 33 pg (27-31); MEAN CORPUSCULAR HGB CONC 35 g/dl (33.0-37.0); MEAN PLATELET VOLUME 9.4 fl (7.4-10.4); MONO # 0.5 K/mm3 (0.1-0.6); MONO % 8.4 % (1.7-9.3); PLATELET COUNT 363 K/mm3 (130-400); RED BLOOD COUNT 4.88 M/mm3 (4.20-5.60); REDCELL DISTRIBUTION WIDTH-CV 14.8 % (11.5-14.5)
[2022-04-18 04:46] LABS: BILIRUBIN,TOTAL 1.7 mg/dL (0.2-1.2); CALCIUM 8.1 mg/dL (8.4-10.2); CREATININE, serum 0.79 mg/dL (0.72-1.25); POTASSIUM 3.7 mmol/L (3.5-4.5); TOTAL PROTEIN 6.8 gm/dL (6.2-8.1)
[2022-04-18 07:37] VITALS: BP 140/95; PULSE 121
== END 2022-04-18 07:37 | disposition home or self-care (01) ==
LOC: COL.ER 03:09
PROVIDERS: Emergency Medicine Emergency Medical Services
DX: F10.10 Alcohol abuse, uncomplicated (principal); E83.51 Hypocalcemia; E80.7 Disorder of bilirubin metabolism, unspecified; R74.01 Elevation of levels of liver transaminase levels; Z28.310 Unvaccinated for COVID-19; Y90.8 Blood alcohol level of 240 mg/100 ml or more
CPT/HCPCS: J3411; J7030